=== PATIENT | male | born 1990 | race Caucasian/White ===

== ENCOUNTER 2021-08-27 13:26 | Emergency (ER) | payer SELFPAY ==
[2021-08-27 13:35] VITALS: BP 143/88; PULSE 80; TEMP 98.3; BMI 30.1
[2021-08-27] MEDS ORDERED: LIDOCAINE 5% TOPICAL PATCH TP ONE (14:49)
[2021-08-27] MEDS ORDERED: KETOROLAC TROMETHAMINE 60 MG/2 ML VIAL IM ONE (14:49)
[2021-08-27] MEDS ORDERED: LIDOCAINE 5% TOPICAL PATCH ONE (14:57)
[2021-08-27] MEDS ORDERED: KETOROLAC TROMETHAMINE 30 MG/1 ML VIAL ONE (14:58)
[2021-08-27] MEDS ORDERED: METHOCARBAMOL 500 MG TABLET PO ONE (15:58)
[2021-08-27] MEDS ORDERED: LIDOCAINE PATCH REMOVAL MC SCH (22:00)
== END 2021-08-27 16:25 | disposition home or self-care (01) ==
LOC: JERFT 13:26 → JER 13:26 → JERFT 16:25
PROC: 3E023GC Introduction of Other Therapeutic Substance into Muscle, Percutaneous Approach (ICD-10-PCS; principal; 2021-08-27)
DX: M54.50 Low back pain, unspecified (principal)
CPT/HCPCS: 72100-TC-FY; 99284-25